=== PATIENT | female | born 1945 | race Two or more races ===

== ENCOUNTER 2016-09-23 11:31 | Emergency (ER) | payer MEDICARE, MEDICAID ==
[~2016-09-23] VITALS: Ht 165.1 cm; Wt 79.0 kg
[2016-09-23] MEDS ORDERED: LOSA100T14 PO (11:45)
[2016-09-23] MEDS ORDERED: LEVO25TA7 PO (11:45)
[2016-09-23 11:46] VITALS: BP 91/64
[2016-09-23] MEDS ORDERED: ASPI-1035 PO (11:46)
== END 2016-09-23 16:47 | disposition home or self-care (01) ==
LOC: ER 13:19
DX: S00.83XA Contusion of other part of head, initial encounter (principal); I10 Essential (primary) hypertension; E78.00 Pure hypercholesterolemia, unspecified; E03.9 Hypothyroidism, unspecified; W01.0XXA Fall on same level from slipping, tripping and stumbling without subsequent striking against object, initial encounter; Y92.89 Other specified places as the place of occurrence of the external cause
CPT/HCPCS: 70150; 99284

== ENCOUNTER 2018-09-28 10:19 | Inpatient (IN) | payer MEDICARE, MEDICAID ==
[~2018-09-28] VITALS: Ht 165.1 cm; Wt 68.0 kg
[~2018-09-28 10:19] MED LIST: ASPI-1159 PO; LEVO25TA7 PO; LOSA100T14 PO
[2018-09-28] MEDS ORDERED: MORPHINE SULFATE 4 MG/ML CPJ (NOT FOR IM USE) IV STA (18:56)
[2018-09-28] MEDS ORDERED: ONDANSETRON HCL 4MG/2ML INJ IV STA (18:56)
[2018-09-28] MEDS ORDERED: SODIUM CHLORIDE 0.9% 1,000 ML IV ONE (18:56)
[2018-09-28 18:57] LABS: CLARITY URINE CLEAR (CLEAR); COLOR URINE YELLOW (YELLOW); KETONES URINE NEGATIVE (NEGATIVE); LEUKOCYTE ESTERASE URINE 2+ (NEGATIVE); NITRITE URINE NEGATIVE (NEGATIVE); OCCULT BLOOD URINE NEGATIVE (NEGATIVE); PROTEIN URINE NEGATIVE (NEGATIVE); SPECIFIC GRAVITY URINE 1.008 (1.005-1.030); UROBILINOGEN URINE 0.2 E.U./dL (0.2-1.0)
[2018-09-28 19:25] LABS: BASOPHILS % 1.2 % (0.0-2.0); EOSINOPHILS % 4.4 % (0.0-5.0); HEMATOCRIT. 37.9 % (36.0-48.0); HEMOGLOBIN. 12.3 g/dL (12.0-16.0); LYMPHOCYTES % 9.8 % (20.0-50.0); MEAN CORPUSCULAR HEMOGLOBIN 28.2 pg (28.0-32.0); MONOCYTES % 11.1 % (2.0-8.0); NEUTROPHILS % 73.5 % (40.0-76.0); PLATELET 229 x1000/uL (130-400); RED BLOOD CELL COUNT 4.36 mill/uL (4.2-5.4)
[2018-09-28 19:28] LABS: CHLORIDE 110 mEq/L (98-107)
[2018-09-28 19:31] LABS: INR 1.2; PARTIAL THROMBOPLASTIN TIME 29.6 sec (23.4-31.0); PROTHROMBIN TIME 11.6 sec (9.1-11.1)
[2018-09-28] MEDS ORDERED: IOHEXOL-300 100 ML BOTTLE ONE (21:03)
[2018-09-28] MEDS ORDERED: LEVOFLOXACIN 750MG PREMIX 150 ML IV ONE (21:30)
[2018-09-28] MEDS ORDERED: SODIUM CHLORIDE 0.9% 1000ML BAG (SEPSIS BOLUS) IV ONE (21:30)
[2018-09-28] MEDS ORDERED: MORPHINE SULFATE 4 MG/ML CPJ (NOT FOR IM USE) IV ONE (21:30)
[2018-09-29 06:16] LABS: BASOPHILS % 1.3 % (0.0-2.0); HEMATOCRIT. 36.1 % (36.0-48.0); LYMPHOCYTES % 8.2 % (20.0-50.0); MEAN CORPUSCULAR HEMOGLOBIN 28.5 pg (28.0-32.0); MEAN CORPUSCULAR VOLUME 86.1 fL (81.0-99.0); MEAN PLATELET VOLUME 9.1 fl (7.4-10.4); MONOCYTES % 10.3 % (2.0-8.0); NEUTROPHILS % 76.2 % (40.0-76.0); PLATELET 208 x1000/uL (130-400); RED BLOOD CELL COUNT 4.19 mill/uL (4.2-5.4)
[2018-09-29 06:23] LABS: CHLORIDE 111 mEq/L (98-107)
[2018-09-29] MEDS ORDERED: GUAIFENESIN 200MG/10ML SUGAR FREE UDC PO PRN (09:30)
[2018-09-29] MEDS ORDERED: DIPHENHYDRAMINE 50MG/ML VIAL IV PRN (09:30)
[2018-09-29] MEDS ORDERED: IPRATROPIUM/ALBUTEROL 0.5-3(2.5)MG/3ML NEB INH PRN (09:30)
[2018-09-29 10:05] LABS: PHOSPHORUS 3.4 mg/dL (2.5-4.9)
[2018-09-29 10:39] VITALS: BP 127/75
[2018-09-29] MEDS ORDERED: ATOR20TA65 PO (10:54)
[2018-09-29] MEDS ORDERED: OMEP20CA10 PO (10:55)
[2018-09-29 12:00] VITALS: BP 142/79
[2018-09-29] MEDS ORDERED: DEXTROSE 50% WATER 50ML SYRINGE IV PRN (12:15)
[2018-09-29] MEDS: INSULIN LISPRO 100 UNITS/ML SUBCUT SCH ×4 (12:40→20:32)
[2018-09-29] MEDS: BLOOD SUGAR DIAGNOSTIC STRIP TEST SCH ×3 (12:48→20:38)
[2018-09-29] MEDS: LORAZEPAM 1MG TABLET PO PRN ×2 (13:37→17:54)
[2018-09-29] MEDS: LOSARTAN POTASSIUM 100 MG TABLET PO SCH (13:37)
[2018-09-29] MEDS: OMEPRAZOLE 20MG CAPSULE EXTENDED RELEASE PO SCH (13:38)
[2018-09-29] MEDS ORDERED: PNEUMOCOCCAL 23-VAL P-SAC VAC 0.5 ML IM ONE (14:00)
[2018-09-29 14:44] LABS: CREATINE KINASE MB FRACTION 2.2 ng/mL (0.5-3.6)
[2018-09-29 16:11] VITALS: BP 132/84
[2018-09-29 20:00] VITALS: BP 101/59
[2018-09-29] MEDS: ATORVASTATIN CALCIUM 20MG TABLET PO SCH (20:32)
[2018-09-29] MEDS: HYDROCODONE/ACETAMINOPHEN 5/325MG TABLET PO PRN (20:33)
[2018-09-30] VITALS (20 sets, daily range): BP systolic 106–150; BP diastolic 64–94
[2018-09-30 00:34] LABS: CREATINE KINASE MB FRACTION 1.7 ng/mL (0.5-3.6)
[2018-09-30] MEDS: BLOOD SUGAR DIAGNOSTIC STRIP TEST SCH ×4 (05:27→21:57)
[2018-09-30] MEDS: INSULIN LISPRO 100 UNITS/ML SUBCUT SCH ×4 (05:55→21:56)
[2018-09-30] MEDS: OMEPRAZOLE 20MG CAPSULE EXTENDED RELEASE PO SCH ×2 (05:57→09:33)
[2018-09-30 07:01] LABS: INR 1.2; PROTHROMBIN TIME 11.6 sec (9.1-11.1)
[2018-09-30 07:06] LABS: BASOPHILS % 0.9 % (0.0-2.0); EOSINOPHILS % 5.5 % (0.0-5.0); HEMATOCRIT. 37.9 % (36.0-48.0); HEMOGLOBIN. 12.4 g/dL (12.0-16.0); LYMPHOCYTES % 9.8 % (20.0-50.0); MEAN CORPUSCULAR HEMOGLOBIN 28.3 pg (28.0-32.0); MEAN CORPUSCULAR VOLUME 86.6 fL (81.0-99.0); MEAN PLATELET VOLUME 9.3 fl (7.4-10.4); MONOCYTES % 10.3 % (2.0-8.0); NEUTROPHILS % 73.5 % (40.0-76.0); PLATELET 240 x1000/uL (130-400); RED BLOOD CELL COUNT 4.38 mill/uL (4.2-5.4); RED CELL DISTRIBUTION WIDTH 14.3 % (11.6-14.6)
[2018-09-30] MEDS ORDERED: LEVOTHYROXINE SODIUM 25MCG TABLET PO SCH (07:10)
[2018-09-30 07:24] LABS: CHLORIDE 108 mEq/L (98-107)
[2018-09-30] MEDS ORDERED: FENTANYL CITRATE/PF 50MCG/ML 2ML VIAL ONE (07:27)
[2018-09-30] MEDS ORDERED: LIDOCAINE HCL 1% 20ML VIAL (Pyxis) INJ ONE (07:36)
[2018-09-30] MEDS ORDERED: SODIUM BICARBONATE 4% (2.4MEQ) 5ML VIAL IV ONE (07:36)
[2018-09-30 07:38] LABS: LDL CHOLESTEROL 91 mg/dL (5-100)
[2018-09-30 07:39] LABS: HDL CHOLESTEROL 41 mg/dL (40-59)
[2018-09-30] MEDS ORDERED: FENTANYL CITRATE/PF 50MCG/ML 2ML VIAL IV ONE (08:30)
[2018-09-30] MEDS: LOSARTAN POTASSIUM 100 MG TABLET PO SCH (09:24)
[2018-09-30] MEDS: LEVOTHYROXINE SODIUM 25MCG TABLET PO SCH (09:34)
[2018-09-30 11:36] LABS: HEMATOCRIT 35.3 % (36.0-48.0); HEMOGLOBIN 11.5 g/dL (12.0-16.0)
[2018-09-30] MEDS: HYDROCODONE/ACETAMINOPHEN 5/325MG TABLET PO PRN (13:18)
[2018-09-30] MEDS: ONDANSETRON HCL 4MG/2ML INJ IV PRN (20:14)
[2018-09-30] MEDS: MORPHINE SULFATE 4 MG/ML CPJ (NOT FOR IM USE) IV PRN (20:14)
[2018-09-30] MEDS: LORAZEPAM 1MG TABLET PO PRN (21:04)
[2018-09-30] MEDS: ATORVASTATIN CALCIUM 20MG TABLET PO SCH (21:34)
[2018-10-01 04:00] VITALS: BP 116/64
[2018-10-01] MEDS: BLOOD SUGAR DIAGNOSTIC STRIP TEST SCH ×3 (07:10→17:10)
[2018-10-01] MEDS: INSULIN LISPRO 100 UNITS/ML SUBCUT SCH ×3 (07:40→17:40)
[2018-10-01 08:00] VITALS: BP 114/74
[2018-10-01] MEDS: OMEPRAZOLE 20MG CAPSULE EXTENDED RELEASE PO SCH (08:04)
[2018-10-01] MEDS: LEVOTHYROXINE SODIUM 25MCG TABLET PO SCH (08:04)
[2018-10-01] MEDS: LOSARTAN POTASSIUM 100 MG TABLET PO SCH (08:04)
[2018-10-01 09:05] LABS: BASOPHILS % 0.7 % (0.0-2.0); EOSINOPHILS % 3.9 % (0.0-5.0); HEMOGLOBIN. 12.4 g/dL (12.0-16.0); LYMPHOCYTES % 8.5 % (20.0-50.0); MEAN CORPUSCULAR HEMOGLOBIN 28.7 pg (28.0-32.0); MEAN CORPUSCULAR VOLUME 85.4 fL (81.0-99.0); MEAN PLATELET VOLUME 9.9 fl (7.4-10.4); MONOCYTES % 9.8 % (2.0-8.0); NEUTROPHILS % 77.1 % (40.0-76.0); PLATELET 254 x1000/uL (130-400); RED BLOOD CELL COUNT 4.33 mill/uL (4.2-5.4); RED CELL DISTRIBUTION WIDTH 14.1 % (11.6-14.6)
[2018-10-01 09:27] LABS: CHLORIDE 107 mEq/L (98-107)
[2018-10-01] MEDS: DOCUSATE SODIUM 100MG CAPSULE PO PRN ×2 (09:36→16:59)
[2018-10-01 12:00] VITALS: BP 127/77
[2018-10-01 16:00] VITALS: BP 119/65
[2018-10-01 16:44] VITALS: BP 119/65
[2018-10-01] MEDS: ONDANSETRON HCL 4MG/2ML INJ IV PRN (16:59)
[2018-10-01 17:00] VITALS: BP 119/65
[2018-10-01] MEDS: MORPHINE SULFATE 4 MG/ML CPJ (NOT FOR IM USE) IV PRN (17:00)
[2018-10-02] MEDS ORDERED: FAMOTIDINE 20MG TABLET PO SCH (09:00)
== END 2018-10-01 19:10 | disposition home or self-care (01) | DRG 421 ==
LOC: ER 10:19 → 8WST 09-29 00:18 → ENRESERV 09-29 07:59
PROVIDERS: ADMIT Internal Medicine; ATTEND Internal Medicine
PROC: 0FB00ZX Excision of Liver, Open Approach, Diagnostic (ICD-10-PCS; principal; 2018-09-30)
DX: K86.9 Disease of pancreas, unspecified (principal); C78.7 Secondary malignant neoplasm of liver and intrahepatic bile duct; E03.9 Hypothyroidism, unspecified; E11.9 Type 2 diabetes mellitus without complications; E78.00 Pure hypercholesterolemia, unspecified; E78.5 Hyperlipidemia, unspecified; I10 Essential (primary) hypertension; J45.909 Unspecified asthma, uncomplicated; N20.0 Calculus of kidney; N28.1 Cyst of kidney, acquired; R74.0 Nonspecific elevation of levels of transaminase and lactic acid dehydrogenase [LDH]; R16.0 Hepatomegaly, not elsewhere classified
CPT/HCPCS: 36415; 71045; 74177; 74181; 76942; 80048; 80061; 80076; 82105; 82150; 82378; 82550; 82553; 82962; 83036; 83605; 83735; 83880; 84100; 84439; 84443; 84484; 85014; 85018; 86301; 88307; 90732; 93005; 93970; 96365; 96375; 97162; 97166; 99285; C1893; J1815; J1956; J2270; J2405; J3010; J3490; J7030; J7050; Q9967

== ENCOUNTER 2018-10-21 11:44 | Inpatient (IN) | payer MEDICARE, MEDICAID ==
[~2018-10-21] VITALS: Ht 157.5 cm; Wt 75.8 kg
[~2018-10-21 11:44] MED LIST changes: +OMEP20CA10 PO
[2018-10-21 12:43] LABS: HEMATOCRIT. 37.6 % (36.0-48.0); HEMOGLOBIN. 12.8 g/dL (12.0-16.0); MEAN CORPUSCULAR VOLUME 85.3 fL (81.0-99.0); MEAN PLATELET VOLUME 9.2 fl (7.4-10.4); PLATELET 332 x1000/uL (130-400); RED CELL DISTRIBUTION WIDTH 15.6 % (11.6-14.6)
[2018-10-21 12:49] LABS: CHLORIDE 99 mEq/L (98-107)
[2018-10-21 12:51] LABS: INR 1.3; PROTHROMBIN TIME 13.6 sec (9.6-11.0)
[2018-10-21 13:13] LABS: PLATELET ESTIMATE NORMAL
[2018-10-21] MEDS ORDERED: SODIUM CHLORIDE 0.9% 500 ML IV ONE (14:15)
[2018-10-21] MEDS ORDERED: ONDANSETRON HCL 4MG/2ML INJ IV ONE (14:15)
[2018-10-21] MEDS ORDERED: MORPHINE SULFATE 4 MG/ML CPJ (NOT FOR IM USE) IV ONE (14:15)
[2018-10-21 15:19] LABS: CLARITY URINE CLOUDY (CLEAR); COLOR URINE DARK YELLOW (YELLOW); KETONES URINE NEGATIVE (NEGATIVE); LEUKOCYTE ESTERASE URINE 2+ (NEGATIVE); NITRITE URINE POSITIVE (NEGATIVE); OCCULT BLOOD URINE NEGATIVE (NEGATIVE); PH URINE 5.5 (4.5-8.0); PROTEIN URINE 1+ (NEGATIVE); SPECIFIC GRAVITY URINE 1.023 (1.005-1.030); UROBILINOGEN URINE 0.2 E.U./dL (0.2-1.0)
[2018-10-21] MEDS: CEFTRIAXONE 1 G PREMIX 50 ML IV ONE ×2 (16:00→23:37)
[2018-10-21 19:00] VITALS: BP 94/58
[2018-10-21] MEDS ORDERED: MORPHINE SULFATE 4 MG/ML CPJ (NOT FOR IM USE) IV PRN (19:45)
[2018-10-21 20:00] VITALS: BP 101/68
[2018-10-21] MEDS ORDERED: GUAIFENESIN 200MG/10ML SUGAR FREE UDC PO PRN (21:15)
[2018-10-21] MEDS ORDERED: DIPHENHYDRAMINE 50MG/ML VIAL IV PRN (21:15)
[2018-10-21] MEDS ORDERED: CLONIDINE 0.1MG TABLET PO PRN (21:15)
[2018-10-21] MEDS ORDERED: DOCUSATE SODIUM 100MG CAPSULE PO PRN (21:15)
[2018-10-21] MEDS ORDERED: MAGNESIUM/ALUMINUM HYDROXIDE/SIMETHICONE 30ML UDC PO PRN (21:15)
[2018-10-21] MEDS: CEFTRIAXONE 1 G PREMIX 50 ML IV SCH ×2 (23:00→23:43)
[2018-10-21] MEDS: ONDANSETRON HCL 4MG/2ML INJ IV PRN (23:04)
[2018-10-22] VITALS: BP 98/51
[2018-10-22 00:12] LABS: PHOSPHORUS 2.7 mg/dL (2.5-4.9)
[2018-10-22 04:00] VITALS: BP 95/54
[2018-10-22 07:00] LABS: CHLORIDE 104 mEq/L (98-107); HEMATOCRIT. 34.4 % (36.0-48.0); HEMOGLOBIN. 11.4 g/dL (12.0-16.0); MEAN CORPUSCULAR HEMOGLOBIN 28.3 pg (28.0-32.0); MEAN CORPUSCULAR VOLUME 85.4 fL (81.0-99.0); PLATELET 310 x1000/uL (130-400); RED BLOOD CELL COUNT 4.03 mill/uL (4.2-5.4); RED CELL DISTRIBUTION WIDTH 15.7 % (11.6-14.6)
[2018-10-22 07:13] LABS: LDL CHOLESTEROL 175 mg/dL (5-100)
[2018-10-22 07:15] LABS: HDL CHOLESTEROL 8 mg/dL (40-59)
[2018-10-22 08:00] VITALS: BP 98/60
[2018-10-22 10:02] LABS: ATYPICAL LYMPHOCYTES 1; PLATELET ESTIMATE NORMAL
[2018-10-22 12:00] VITALS: BP 107/46
[2018-10-22] MEDS ORDERED: PIPERACILLIN/TAZ 3.375G PREMIX 50 ML IV SCH (15:00)
[2018-10-22 16:00] VITALS: BP 94/53
[2018-10-22] MEDS: PIPERACILLIN/TAZ 2.25G PREMIX 50 ML IV SCH ×2 (17:09→23:15)
[2018-10-22 20:00] VITALS: BP 94/50
[2018-10-22] MEDS ORDERED: CEFTRIAXONE 1 G PREMIX 50 ML IV SCH (21:00)
[2018-10-23] VITALS: BP 99/40
[2018-10-23] MEDS: MORPHINE SULFATE 4 MG/ML CPJ (NOT FOR IM USE) IV PRN ×2 (01:33→06:45)
[2018-10-23 04:00] VITALS: BP 95/49
[2018-10-23] MEDS: PIPERACILLIN/TAZ 2.25G PREMIX 50 ML IV SCH ×4 (05:03→23:48)
[2018-10-23] MEDS ORDERED: MORPHINE SULFATE 4 MG/ML CPJ (NOT FOR IM USE) IV PRN ×2 (05:15→13:30)
[2018-10-23 06:30] LABS: HEMATOCRIT. 34.2 % (36.0-48.0); HEMOGLOBIN. 11.6 g/dL (12.0-16.0); MEAN CORPUSCULAR HEMOGLOBIN 29.1 pg (28.0-32.0); MEAN CORPUSCULAR VOLUME 85.5 fL (81.0-99.0); MEAN PLATELET VOLUME 9.3 fl (7.4-10.4); PLATELET 302 x1000/uL (130-400); RED BLOOD CELL COUNT 3.99 mill/uL (4.2-5.4); RED CELL DISTRIBUTION WIDTH 15.8 % (11.6-14.6)
[2018-10-23 08:00] VITALS: BP 96/55
[2018-10-23] MEDS ORDERED: IOHEXOL-300 100 ML BOTTLE ONE (10:02)
[2018-10-23] MEDS ORDERED: SIMETHICONE 40 MG/0.6 ML 30ML ONE (10:03)
[2018-10-23 10:11] LABS: PLATELET ESTIMATE NORMAL
[2018-10-23] MEDS ORDERED: ALBUMIN HUMAN 12.5G/250ML (5%) IV ONE (11:43)
[2018-10-23] MEDS ORDERED: MIDAZOLAM HCL 2 MG/2 ML VIAL ONE (12:17)
[2018-10-23] MEDS ORDERED: NEOSTIGMINE METHYLSULFATE 1MG/ML 10 ML VIAL ONE (12:17)
[2018-10-23] MEDS ORDERED: CEFAZOLIN SODIUM 1000MG/VIAL ONE (12:17)
[2018-10-23] MEDS ORDERED: ROCURONIUM BROMIDE 10MG/ML VIAL 5ML IV ONE (12:17)
[2018-10-23] MEDS ORDERED: SODIUM CHLORIDE 0.9% 10ML VIAL ONE (12:17)
[2018-10-23] MEDS ORDERED: FENTANYL CITRATE/PF 50MCG/ML 2ML VIAL ONE (12:17)
[2018-10-23] MEDS ORDERED: PROPOFOL 200MG/20ML VIAL IV ONE (12:17)
[2018-10-23] MEDS ORDERED: GLYCOPYRROLATE 0.2 MG/ML 2ML VIAL ONE (12:17)
[2018-10-23] MEDS ORDERED: EPHEDRINE SULFATE 50MG/ML VIAL ONE (12:18)
[2018-10-23] MEDS ORDERED: METOCLOPRAMIDE HCL 10MG/2ML VIAL ONE (12:18)
[2018-10-23] MEDS ORDERED: LIDOCAINE HCL/PF 1% 10 MG/ML 5ML VIAL ONE (12:18)
[2018-10-23] MEDS ORDERED: PHENYLEPHRINE HCL 10 MG/ML 1ML (IV VIAL) IV ONE (12:18)
[2018-10-23] MEDS ORDERED: SUCCINYLCHOLINE CHLORIDE 200MG/10ML IV ONE (12:18)
[2018-10-23] MEDS ORDERED: ONDANSETRON HCL 4MG/2ML INJ ONE (12:18)
[2018-10-23] MEDS ORDERED: ETOMIDATE 2MG/ML 10ML VIAL IV ONE (12:23)
[2018-10-23 12:57] VITALS: BP 90/55
[2018-10-23] MEDS ORDERED: SODIUM CHLORIDE 0.9% 1,000 ML IV ONE (13:22)
[2018-10-23] MEDS ORDERED: HYDROMORPHONE HCL/PF 2MG/ML CPJ IV PRN (13:30)
[2018-10-23] MEDS ORDERED: ONDANSETRON HCL 4MG/2ML INJ IV PRN (13:30)
[2018-10-23 16:46] VITALS: BP 95/50
[2018-10-23 20:00] VITALS: BP 97/55
[2018-10-23] MEDS: DEXT 5%/0.9% NACL 1,000 ML IV SCH (20:43)
[2018-10-24] VITALS (7 sets, daily range): BP systolic 86–108; BP diastolic 50–68
[2018-10-24] MEDS: MORPHINE SULFATE 4 MG/ML CPJ (NOT FOR IM USE) IV PRN ×2 (04:11→13:23)
[2018-10-24] MEDS: PIPERACILLIN/TAZ 2.25G PREMIX 50 ML IV SCH ×3 (06:01→18:32)
[2018-10-24 07:12] LABS: HEMATOCRIT. 34.7 % (36.0-48.0); HEMOGLOBIN. 11.6 g/dL (12.0-16.0); MEAN CORPUSCULAR VOLUME 86.7 fL (81.0-99.0); MEAN PLATELET VOLUME 9.2 fl (7.4-10.4); PLATELET 325 x1000/uL (130-400); RED CELL DISTRIBUTION WIDTH 16.5 % (11.6-14.6)
[2018-10-24] MEDS ORDERED: OMEPRAZOLE 20MG CAPSULE EXTENDED RELEASE PO ONE (09:15)
[2018-10-24] MEDS: OMEPRAZOLE 20MG CAPSULE EXTENDED RELEASE PO SCH ×2 (09:23→18:32)
[2018-10-24] MEDS: DEXT 5%/0.9% NACL 1,000 ML IV SCH (10:54)
[2018-10-24] MEDS: HYDROMORPHONE HCL/PF 2MG/ML CPJ IV PRN (18:09)
[2018-10-24] MEDS ORDERED: SODIUM CHLORIDE 0.9% 500 ML IV ONE (21:33)
[2018-10-25] VITALS (11 sets, daily range): BP systolic 93–112; BP diastolic 60–78
[2018-10-25] MEDS: HYDROMORPHONE HCL/PF 2MG/ML CPJ IV PRN ×3 (00:20→21:00)
[2018-10-25] MEDS: PIPERACILLIN/TAZ 2.25G PREMIX 50 ML IV SCH ×4 (00:50→17:20)
[2018-10-25] MEDS: DEXT 5%/0.9% NACL 1,000 ML IV SCH ×2 (03:28→17:19)
[2018-10-25 04:02] LABS: PLATELET ESTIMATE NORMAL
[2018-10-25 06:00] LABS: HEMATOCRIT. 37.2 % (36.0-48.0); HEMOGLOBIN. 11.9 g/dL (12.0-16.0); MEAN CORPUSCULAR HEMOGLOBIN 28.6 pg (28.0-32.0); MEAN CORPUSCULAR VOLUME 89.3 fL (81.0-99.0); MEAN PLATELET VOLUME 8.9 fl (7.4-10.4); PLATELET 344 x1000/uL (130-400); RED BLOOD CELL COUNT 4.17 mill/uL (4.2-5.4); RED CELL DISTRIBUTION WIDTH 16.7 % (11.6-14.6)
[2018-10-25] MEDS: OMEPRAZOLE 20MG CAPSULE EXTENDED RELEASE PO SCH ×2 (06:25→17:20)
[2018-10-25 06:27] LABS: CHLORIDE 108 mEq/L (98-107)
[2018-10-25] MEDS: MORPHINE SULFATE 4 MG/ML CPJ (NOT FOR IM USE) IV PRN (07:11)
[2018-10-26] VITALS (12 sets, daily range): BP systolic 87–104; BP diastolic 53–65
[2018-10-26] MEDS: PIPERACILLIN/TAZ 2.25G PREMIX 50 ML IV SCH ×4 (00:05→17:01)
[2018-10-26 02:26] LABS: PLATELET ESTIMATE NORMAL
[2018-10-26] MEDS: HYDROMORPHONE HCL/PF 2MG/ML CPJ IV PRN ×3 (04:21→16:24)
[2018-10-26 05:39] LABS: HEMOGLOBIN. 12.2 g/dL (12.0-16.0); MEAN CORPUSCULAR HEMOGLOBIN 28.9 pg (28.0-32.0); MEAN CORPUSCULAR VOLUME 87.9 fL (81.0-99.0); MEAN PLATELET VOLUME 9.1 fl (7.4-10.4); PLATELET 321 x1000/uL (130-400); RED BLOOD CELL COUNT 4.22 mill/uL (4.2-5.4); RED CELL DISTRIBUTION WIDTH 16.9 % (11.6-14.6)
[2018-10-26 07:00] LABS: CHLORIDE 111 mEq/L (98-107)
[2018-10-26] MEDS: OMEPRAZOLE 20MG CAPSULE EXTENDED RELEASE PO SCH ×3 (07:30→17:30)
[2018-10-26] MEDS: DEXT 5%/0.9% NACL 1,000 ML IV SCH (09:53)
[2018-10-26] MEDS: ONDANSETRON HCL 4MG/2ML INJ IV PRN (10:47)
[2018-10-26 12:52] LABS: PLATELET ESTIMATE NORMAL
[2018-10-26] MEDS: MORPHINE SULFATE 4 MG/ML CPJ (NOT FOR IM USE) IV PRN (20:39)
[2018-10-27] VITALS (15 sets, daily range): BP systolic 79–107; BP diastolic 48–61
[2018-10-27] MEDS: PIPERACILLIN/TAZ 2.25G PREMIX 50 ML IV SCH ×4 (00:17→17:14)
[2018-10-27] MEDS: DEXT 5%/0.9% NACL 1,000 ML IV SCH ×2 (00:18→16:00)
[2018-10-27] MEDS: HYDROMORPHONE HCL/PF 2MG/ML CPJ IV PRN ×3 (01:43→15:58)
[2018-10-27] MEDS: OMEPRAZOLE 20MG CAPSULE EXTENDED RELEASE PO SCH ×2 (08:08→17:15)
[2018-10-27 08:50] LABS: HEMATOCRIT. 38.1 % (36.0-48.0); HEMOGLOBIN. 12.2 g/dL (12.0-16.0); MEAN CORPUSCULAR HEMOGLOBIN 28.4 pg (28.0-32.0); MEAN CORPUSCULAR VOLUME 88.6 fL (81.0-99.0); PLATELET 283 x1000/uL (130-400); RED CELL DISTRIBUTION WIDTH 17.4 % (11.6-14.6)
[2018-10-27 09:52] LABS: PLATELET ESTIMATE NORMAL
== END 2018-10-26 18:47 | disposition hospice, home (50) | DRG 435 ==
LOC: ER 11:44 → 6WST 14:14 → EDBEDREQTM 14:16 → EDBEDREQ 14:16 → ENRESERV 15:39 → 5EST 10-24 23:37
PROVIDERS: ADMIT Internal Medicine; ATTEND Internal Medicine
PROC: 0FJB8ZZ Inspection of Hepatobiliary Duct, Via Natural or Artificial Opening Endoscopic (ICD-10-PCS; principal; 2018-10-23)
DX: C25.9 Malignant neoplasm of pancreas, unspecified (principal); K83.1 Obstruction of bile duct; K72.00 Acute and subacute hepatic failure without coma; N39.0 Urinary tract infection, site not specified; C78.7 Secondary malignant neoplasm of liver and intrahepatic bile duct; E03.9 Hypothyroidism, unspecified; E11.65 Type 2 diabetes mellitus with hyperglycemia; I10 Essential (primary) hypertension; E78.5 Hyperlipidemia, unspecified; E86.0 Dehydration; J45.909 Unspecified asthma, uncomplicated; Z85.07 Personal history of malignant neoplasm of pancreas; Z79.82 Long term (current) use of aspirin; Z79.899 Other long term (current) drug therapy
CPT/HCPCS: 36415; 74328; 76700; 80048; 80061; 80076; 82248; 83735; 84100; 84439; 84443; 84481; 93970; 96374; 96375; 99285; C1726; C1769; J0330; J0690; J0696; J1170; J1200; J2250; J2270; J2370; J2405; J2543; J2704; J2710; J2765; J3010; J3490; J7040; J7042; J7050; P9041; Q9967